=== PATIENT | male | born 1985 | race Caucasian/White ===

== ENCOUNTER 2017-02-14 00:39 | Emergency (ER) | payer OTHER ==
[~2017-02-14] VITALS: Ht 177.8 cm; Wt 68.0 kg
[2017-02-14] MEDS ORDERED: HYDROCODONE-AP1 EAC6 (01:01)
[2017-02-14] MEDS ORDERED: TYLENOL EXTRA500 MG (01:01)
[2017-02-14 04:56] VITALS: BP 128/89
== END 2017-02-14 04:00 | disposition home or self-care (01) ==
LOC: ER 00:39
DX: M25.572 Pain in left ankle and joints of left foot (principal); M25.561 Pain in right knee; M25.562 Pain in left knee; S80.812A Abrasion, left lower leg, initial encounter; F10.99 Alcohol use, unspecified with unspecified alcohol-induced disorder; Z77.22 Contact with and (suspected) exposure to environmental tobacco smoke (acute) (chronic); V23.4XXA Motorcycle driver injured in collision with car, pick-up truck or van in traffic accident, initial encounter; Y93.55 Activity, bike riding; Y92.89 Other specified places as the place of occurrence of the external cause; Y99.8 Other external cause status

== ENCOUNTER 2017-02-25 20:41 | Emergency (ER) | payer OTHER ==
[~2017-02-25] VITALS: Ht 177.8 cm; Wt 70.3 kg
[~2017-02-25 20:41] MED LIST: HYDROCODONE-AP1 EAC6; TYLENOL EXTRA500 MG
[2017-02-25 20:42] VITALS: BP 138/88
[2017-02-25] MEDS ORDERED: BACTROBAN CREAM30 G1 TOP (21:07)
[2017-02-25] MEDS ORDERED: KEFLEX500 MG PO (21:07)
== END 2017-02-25 21:20 | disposition home or self-care (01) ==
LOC: ER 20:41
DX: S80.812A Abrasion, left lower leg, initial encounter (principal); L01.00 Impetigo, unspecified; F10.99 Alcohol use, unspecified with unspecified alcohol-induced disorder; Z77.22 Contact with and (suspected) exposure to environmental tobacco smoke (acute) (chronic); V29.9XXA Motorcycle rider (driver) (passenger) injured in unspecified traffic accident, initial encounter; Y93.89 Activity, other specified; Y92.89 Other specified places as the place of occurrence of the external cause; Y99.8 Other external cause status

== ENCOUNTER 2017-07-01 19:34 | Emergency (ER) | payer OTHER ==
[~2017-07-01] VITALS: Ht 177.8 cm; Wt 70.3 kg
[~2017-07-01 19:34] MED LIST changes: +BACTROBAN CREAM30 G1 TOP; +KEFLEX500 MG PO
[2017-07-01 20:11] LABS: HEMATOCRIT 44.6 % (42.0-52.0); HEMOGLOBIN 15.4 gm/dL (14.0-18.0); MCH 32.4 pg (26.0-34.0); MCHC 34.6 g/dL (28.0-37.0); MCV 93.7 fL (80.0-100.0); RBC 4.76 mil/uL (4.50-6.00); RDW 13.5 % (10.5-14.5); WBC 10.9 thou/uL (4.0-11.0)
[2017-07-01 20:19] LABS: CALCIUM 9.9 mg/dL (8.5-10.1); CREATININE 1.1 mg/dL (0.7-1.3); POTASSIUM 4.7 mmol/L (3.5-5.1)
[2017-07-01 20:25] LABS: ALBUMIN 4.7 g/dL (3.4-5.0); TOTAL BILIRUBIN 1.2 mg/dL (<0.1-1.0); TOTAL PROTEIN 7.9 g/dL (6.4-8.2)
[2017-07-01 20:30] LABS: APTT 24.9 Seconds (24.5-32.8); PROTIME 10.7 Seconds (9.3-11.4)
== END 2017-07-01 22:34 | disposition home or self-care (01) ==
LOC: ER 19:34
PROVIDERS: Emergency Medicine
DX: R51 Headache (principal); F17.210 Nicotine dependence, cigarettes, uncomplicated